=== PATIENT | male | born 1940 | race Caucasian/White ===

== ENCOUNTER → 2017-01-22 | Outpatient (CLI) | payer MEDICARE, BC ==
[~2017-01-22] MED LIST: CHOL100018 PO; METO25TA2 PO
== END | disposition home or self-care (01) ==
LOC: CFH 12:48
PROVIDERS: ATTEND Radiology Radiation Oncology
DX: C78.02 Secondary malignant neoplasm of left lung (principal); C80.1 Malignant (primary) neoplasm, unspecified; R91.8 Other nonspecific abnormal finding of lung field; M53.84 Other specified dorsopathies, thoracic region; K76.89 Other specified diseases of liver; Z90.5 Acquired absence of kidney
CPT/HCPCS: 71250; 74150

== ENCOUNTER → 2017-03-05 | Outpatient (CLI) | payer MEDICARE, BC | END | disposition home or self-care (01) | LOC: CFH 13:44 | PROVIDERS: ATTEND Internal Medicine | DX: M47.895 Other spondylosis, thoracolumbar region (principal); G89.29 Other chronic pain | CPT/HCPCS: 72072; 72100 ==

== ENCOUNTER → 2017-04-07 | Outpatient (CLI) | payer MEDICARE, BC | END | disposition home or self-care (01) | LOC: CFH 10:12 | PROVIDERS: ATTEND Radiology Radiation Oncology | DX: C78.02 Secondary malignant neoplasm of left lung (principal); I10 Essential (primary) hypertension; R91.8 Other nonspecific abnormal finding of lung field; N43.3 Hydrocele, unspecified; K76.9 Liver disease, unspecified; K57.30 Diverticulosis of large intestine without perforation or abscess without bleeding; Z90.5 Acquired absence of kidney | CPT/HCPCS: 71250; 74176 ==

== ENCOUNTER → 2017-04-09 | Outpatient (CLI) | payer MEDICARE, BC | END | disposition home or self-care (01) | LOC: ROC 11-26 09:52 | PROVIDERS: ATTEND Radiology Radiation Oncology | DX: C78.02 Secondary malignant neoplasm of left lung (principal); Z85.528 Personal history of other malignant neoplasm of kidney; Z90.5 Acquired absence of kidney | CPT/HCPCS: G0463 ==

== ENCOUNTER → 2017-07-09 | Outpatient (CLI) | payer MEDICARE, BC ==
[~2017-07-09] MED LIST changes: +CHOL100012 PO; -CHOL100018 PO
== END | disposition home or self-care (01) ==
LOC: ROC 09:00
PROVIDERS: ATTEND Radiology Radiation Oncology
DX: C64.1 Malignant neoplasm of right kidney, except renal pelvis (principal); C64.2 Malignant neoplasm of left kidney, except renal pelvis; R91.8 Other nonspecific abnormal finding of lung field
CPT/HCPCS: G0463

== ENCOUNTER → 2017-10-11 | Outpatient (CLI) | payer MEDICARE, BC | END | disposition home or self-care (01) | LOC: CFH 10:12 | PROVIDERS: ATTEND Radiology Radiation Oncology | DX: R91.8 Other nonspecific abnormal finding of lung field (principal); R59.9 Enlarged lymph nodes, unspecified; C34.90 Malignant neoplasm of unspecified part of unspecified bronchus or lung; I10 Essential (primary) hypertension | CPT/HCPCS: 71250; 74176 ==

== ENCOUNTER → 2017-10-13 | Outpatient (CLI) | payer MEDICARE, BC | LOC: ROC 09:35 | PROVIDERS: ATTEND Radiology Radiation Oncology | DX: C64.2 Malignant neoplasm of left kidney, except renal pelvis (principal); Z92.3 Personal history of irradiation; R91.8 Other nonspecific abnormal finding of lung field; Z85.528 Personal history of other malignant neoplasm of kidney; Z90.5 Acquired absence of kidney | CPT/HCPCS: G0463 ==

== ENCOUNTER → 2018-01-13 | Outpatient (CLI) | payer MEDICARE, BC | END | disposition home or self-care (01) | LOC: ROC 07:48 | PROVIDERS: ATTEND Radiology Radiation Oncology | DX: C78.02 Secondary malignant neoplasm of left lung (principal); Z85.528 Personal history of other malignant neoplasm of kidney; Z90.5 Acquired absence of kidney | CPT/HCPCS: G0463 ==

== ENCOUNTER → 2018-04-14 | Outpatient (CLI) | payer MEDICARE, BC | END | disposition home or self-care (01) | LOC: PETCFH 07:50 | PROVIDERS: ATTEND Radiology Radiation Oncology | DX: C78.02 Secondary malignant neoplasm of left lung (principal); C64.1 Malignant neoplasm of right kidney, except renal pelvis; C64.2 Malignant neoplasm of left kidney, except renal pelvis; R91.8 Other nonspecific abnormal finding of lung field; K40.90 Unilateral inguinal hernia, without obstruction or gangrene, not specified as recurrent; K57.30 Diverticulosis of large intestine without perforation or abscess without bleeding; N43.3 Hydrocele, unspecified; I25.10 Atherosclerotic heart disease of native coronary artery without angina pectoris; I10 Essential (primary) hypertension | CPT/HCPCS: 78815; A9552 ==

== ENCOUNTER → 2018-04-26 | Outpatient (CLI) | payer MEDICARE, BC ==
[~2018-04-26] VITALS: Ht 170.2 cm; Wt 65.4 kg
[~2018-04-26] MED LIST changes: +FENTANYL PF 100 MCG/2ML ONE; +FLUMAZENIL 0.1 MG/1 ML, 5ML ONE; +LIDOCAINE-MPF 2%, 2ML ONE; +MIDAZOLAM 1 MG/ML, 5ML ONE; +NALOXONE 1 MG/ML, 2ML ONE; +SODIUM CHLORIDE 0.9% 1,000 ML IV SCH
[2018-04-26 07:42] VITALS: BP 149/85
== END | disposition home or self-care (01) ==
LOC: OUT 07:09
PROVIDERS: ATTEND Radiology Radiation Oncology
DX: C64.2 Malignant neoplasm of left kidney, except renal pelvis (principal); C64.1 Malignant neoplasm of right kidney, except renal pelvis; C78.02 Secondary malignant neoplasm of left lung; I10 Essential (primary) hypertension; I25.10 Atherosclerotic heart disease of native coronary artery without angina pectoris; Z88.5 Allergy status to narcotic agent; Z98.890 Other specified postprocedural states; Z79.899 Other long term (current) drug therapy
CPT/HCPCS: 32553; 77014; 99156; 99157; J2250; J3010; J3490; J7030; J2310

== ENCOUNTER → 2018-07-21 | Outpatient (CLI) | payer MEDICARE, BC ==
[~2018-07-21] MED LIST changes: -FENTANYL PF 100 MCG/2ML ONE; -FLUMAZENIL 0.1 MG/1 ML, 5ML ONE; -LIDOCAINE-MPF 2%, 2ML ONE; -MIDAZOLAM 1 MG/ML, 5ML ONE; -NALOXONE 1 MG/ML, 2ML ONE; -SODIUM CHLORIDE 0.9% 1,000 ML IV SCH
== END | disposition home or self-care (01) ==
LOC: CFH 10:19
PROVIDERS: ATTEND Radiology Radiation Oncology
DX: C78.02 Secondary malignant neoplasm of left lung (principal); R91.1 Solitary pulmonary nodule; R59.9 Enlarged lymph nodes, unspecified; Z85.528 Personal history of other malignant neoplasm of kidney
CPT/HCPCS: 71250; 74176; 82565

== ENCOUNTER → 2018-07-27 | Outpatient (CLI) | payer MEDICARE, BC | END | disposition home or self-care (01) | LOC: ROC 07:44 | PROVIDERS: ATTEND Radiology Radiation Oncology | DX: Z02.9 Encounter for administrative examinations, unspecified (principal) ==

== ENCOUNTER → 2018-11-08 | Outpatient (CLI) | payer MEDICARE, BC | END | disposition home or self-care (01) | LOC: CFH 12:11 | PROVIDERS: ATTEND Radiology Radiation Oncology | DX: C64.1 Malignant neoplasm of right kidney, except renal pelvis (principal); C78.02 Secondary malignant neoplasm of left lung; N43.3 Hydrocele, unspecified; K40.90 Unilateral inguinal hernia, without obstruction or gangrene, not specified as recurrent; Z90.5 Acquired absence of kidney | CPT/HCPCS: 71250; 74176 ==

== ENCOUNTER → 2019-02-07 | Outpatient (CLI) | payer MEDICARE, BC | END | disposition home or self-care (01) | LOC: CFH 12:10 | PROVIDERS: ATTEND Radiology Radiation Oncology | DX: C78.02 Secondary malignant neoplasm of left lung (principal); N43.3 Hydrocele, unspecified | CPT/HCPCS: 71250; 74176 ==

== ENCOUNTER → 2019-02-09 | Outpatient (CLI) | payer MEDICARE, BC | END | disposition home or self-care (01) | LOC: EDSTATUS 11-10 14:01 → ROC 07:57 | PROVIDERS: ATTEND Radiology Radiation Oncology | DX: Z08 Encounter for follow-up examination after completed treatment for malignant neoplasm (principal); Z85.528 Personal history of other malignant neoplasm of kidney; Z88.8 Allergy status to other drugs, medicaments and biological substances; Z90.5 Acquired absence of kidney | CPT/HCPCS: G0463 ==

== ENCOUNTER 2019-05-09 12:14 | Outpatient (CLI) | payer MEDICARE, BC | END 2019-05-09 23:59 | disposition home or self-care (01) | LOC: CFH 12:14 | PROVIDERS: ATTEND Radiology Radiation Oncology | DX: C78.02 Secondary malignant neoplasm of left lung (principal) | CPT/HCPCS: 71250; 74176 ==

== ENCOUNTER → 2019-08-14 | Outpatient (CLI) | payer MEDICARE, BC | END | disposition home or self-care (01) | LOC: CFH 10:40 | PROVIDERS: ATTEND Internal Medicine Hematology & Oncology | DX: C64.2 Malignant neoplasm of left kidney, except renal pelvis (principal); C78.02 Secondary malignant neoplasm of left lung; K76.89 Other specified diseases of liver; K40.90 Unilateral inguinal hernia, without obstruction or gangrene, not specified as recurrent; N43.3 Hydrocele, unspecified; N40.0 Benign prostatic hyperplasia without lower urinary tract symptoms; I10 Essential (primary) hypertension | CPT/HCPCS: 71250; 74176 ==

== ENCOUNTER → 2019-11-14 | Outpatient (CLI) | payer MEDICARE, BC ==
[~2019-11-14] MED LIST changes: +LEVO25TA2 PO; +POLY17PO5 PO
== END | disposition home or self-care (01) ==
LOC: CFH 15:02
PROVIDERS: ATTEND Internal Medicine Hematology & Oncology
DX: J92.9 Pleural plaque without asbestos (principal); R22.2 Localized swelling, mass and lump, trunk; R91.8 Other nonspecific abnormal finding of lung field; N32.89 Other specified disorders of bladder
CPT/HCPCS: 71250; 74176

== ENCOUNTER → 2020-04-04 | Outpatient (CLI) | payer MEDICARE, BC ==
[~2020-04-04] MED LIST changes: +OMNIPAQUE 350 MG/ML, 100ML BOTTLE ONE
== END | disposition home or self-care (01) ==
LOC: CFH 12:17
PROVIDERS: ATTEND Internal Medicine Hematology & Oncology
DX: C64.2 Malignant neoplasm of left kidney, except renal pelvis (principal); J98.19 Other pulmonary collapse; R91.8 Other nonspecific abnormal finding of lung field
CPT/HCPCS: 71275; Q9967

== ENCOUNTER → 2020-04-05 | Outpatient (CLI) | payer MEDICARE, BC ==
[~2020-04-05] MED LIST changes: +LIDOCAINE 1%, 10ML ONE; -OMNIPAQUE 350 MG/ML, 100ML BOTTLE ONE
== END | disposition home or self-care (01) ==
LOC: RAD 11:38
PROVIDERS: ATTEND Internal Medicine Hematology & Oncology
DX: J90 Pleural effusion, not elsewhere classified (principal); R91.8 Other nonspecific abnormal finding of lung field; C64.2 Malignant neoplasm of left kidney, except renal pelvis; Z88.5 Allergy status to narcotic agent; Z79.899 Other long term (current) drug therapy
CPT/HCPCS: 32555; 82150; 82945; 83615; 83986; 84157; 87015; 87070; 87075; 87102; 87116; 87205; 87206; 88112; 88305; 89051

== ENCOUNTER → 2020-05-03 | Outpatient (CLI) | payer MEDICARE, BC | END | disposition home or self-care (01) | LOC: RAD 13:31 | PROVIDERS: ATTEND Internal Medicine Hematology & Oncology | DX: J90 Pleural effusion, not elsewhere classified (principal); Z85.528 Personal history of other malignant neoplasm of kidney; Z88.5 Allergy status to narcotic agent; Z79.899 Other long term (current) drug therapy | CPT/HCPCS: 32555 ==

== ENCOUNTER → 2020-06-10 | Outpatient (CLI) | payer MEDICARE, BC ==
[~2020-06-10] MED LIST changes: -LIDOCAINE 1%, 10ML ONE
== END | disposition home or self-care (01) ==
LOC: CFH 12:39
PROVIDERS: ATTEND Internal Medicine Hematology & Oncology
DX: C78.02 Secondary malignant neoplasm of left lung (principal); C78.01 Secondary malignant neoplasm of right lung; C64.2 Malignant neoplasm of left kidney, except renal pelvis; R91.8 Other nonspecific abnormal finding of lung field; J90 Pleural effusion, not elsewhere classified; J92.9 Pleural plaque without asbestos
CPT/HCPCS: 71250

== ENCOUNTER → 2020-06-21 | Outpatient (CLI) | payer MEDICARE, BC | END | disposition home or self-care (01) | LOC: WOUND 08:59 | PROVIDERS: ATTEND Family Medicine | DX: S09.12XA Laceration of muscle and tendon of head, initial encounter (principal); S01.80XA Unspecified open wound of other part of head, initial encounter; C7A.093 Malignant carcinoid tumor of the kidney; I10 Essential (primary) hypertension; E03.9 Hypothyroidism, unspecified; Z85.118 Personal history of other malignant neoplasm of bronchus and lung; Z88.5 Allergy status to narcotic agent; Z79.899 Other long term (current) drug therapy; W19.XXXA Unspecified fall, initial encounter; Y92.89 Other specified places as the place of occurrence of the external cause; Y99.8 Other external cause status; Y93.89 Activity, other specified | CPT/HCPCS: 97597; G0463 ==

== ENCOUNTER → 2020-06-28 | Outpatient (CLI) | payer MEDICARE, BC | END | disposition home or self-care (01) | LOC: WOUND 09:56 | PROVIDERS: ATTEND Family Medicine | DX: S09.1 Injury of muscle and tendon of head (principal); S01.80XD Unspecified open wound of other part of head, subsequent encounter; C7A.093 Malignant carcinoid tumor of the kidney; I10 Essential (primary) hypertension; E03.9 Hypothyroidism, unspecified; Z85.118 Personal history of other malignant neoplasm of bronchus and lung; Z88.5 Allergy status to narcotic agent; Z79.899 Other long term (current) drug therapy; W19.XXXD Unspecified fall, subsequent encounter | CPT/HCPCS: 97597 ==

== ENCOUNTER → 2020-07-05 | Outpatient (CLI) | payer MEDICARE, BC | END | disposition home or self-care (01) | LOC: WOUND 08:50 | PROVIDERS: ATTEND Family Medicine | DX: S09.1 Injury of muscle and tendon of head (principal); S01.80XD Unspecified open wound of other part of head, subsequent encounter; C7A.093 Malignant carcinoid tumor of the kidney; I10 Essential (primary) hypertension; E03.9 Hypothyroidism, unspecified; Z85.118 Personal history of other malignant neoplasm of bronchus and lung; Z88.5 Allergy status to narcotic agent; Z79.899 Other long term (current) drug therapy; W19.XXXD Unspecified fall, subsequent encounter | CPT/HCPCS: G0463 ==

== ENCOUNTER → 2020-07-12 | Outpatient (CLI) | payer MEDICARE, BC | END | disposition home or self-care (01) | LOC: WOUND 08:57 | PROVIDERS: ATTEND Family Medicine | DX: S09.1 Injury of muscle and tendon of head (principal); C7A.093 Malignant carcinoid tumor of the kidney; I10 Essential (primary) hypertension; E03.9 Hypothyroidism, unspecified; Z85.118 Personal history of other malignant neoplasm of bronchus and lung; C78.01 Secondary malignant neoplasm of right lung; C78.02 Secondary malignant neoplasm of left lung; W19.XXXD Unspecified fall, subsequent encounter | CPT/HCPCS: 99213; G0463 ==

== ENCOUNTER → 2020-07-19 | Outpatient (CLI) | payer MEDICARE, BC | END | disposition home or self-care (01) | LOC: WOUND 08:56 | PROVIDERS: ATTEND Family Medicine | DX: S09.1 Injury of muscle and tendon of head (principal); C7A.093 Malignant carcinoid tumor of the kidney; I10 Essential (primary) hypertension; E03.9 Hypothyroidism, unspecified; C78.01 Secondary malignant neoplasm of right lung; C78.02 Secondary malignant neoplasm of left lung; Z90.5 Acquired absence of kidney; W19.XXXD Unspecified fall, subsequent encounter | CPT/HCPCS: G0463 ==

== ENCOUNTER → 2020-08-09 | Outpatient (CLI) | payer MEDICARE, BC | END | disposition home or self-care (01) | LOC: WOUND 09:01 | PROVIDERS: ATTEND Internal Medicine | DX: S01.80XD Unspecified open wound of other part of head, subsequent encounter (principal); S09.1 Injury of muscle and tendon of head; C7A.093 Malignant carcinoid tumor of the kidney; I10 Essential (primary) hypertension; E03.9 Hypothyroidism, unspecified; C78.01 Secondary malignant neoplasm of right lung; C78.02 Secondary malignant neoplasm of left lung; Z90.5 Acquired absence of kidney; W19.XXXD Unspecified fall, subsequent encounter | CPT/HCPCS: 97597 ==

== ENCOUNTER → 2020-08-23 | Outpatient (CLI) | payer MEDICARE, BC | END | disposition home or self-care (01) | LOC: WOUND 08:55 | PROVIDERS: ATTEND Internal Medicine | DX: S01.81XD Laceration without foreign body of other part of head, subsequent encounter (principal); S09.1 Injury of muscle and tendon of head; C7A.093 Malignant carcinoid tumor of the kidney; I10 Essential (primary) hypertension; E03.9 Hypothyroidism, unspecified; C78.01 Secondary malignant neoplasm of right lung; C78.02 Secondary malignant neoplasm of left lung; Z90.5 Acquired absence of kidney; Z88.5 Allergy status to narcotic agent; Z79.899 Other long term (current) drug therapy; W19.XXXD Unspecified fall, subsequent encounter | CPT/HCPCS: 97597 ==

== ENCOUNTER → 2020-08-30 | Outpatient (CLI) | payer MEDICARE, BC | END | disposition home or self-care (01) | LOC: WOUND 09:07 | PROVIDERS: ATTEND Internal Medicine | DX: S01.81XD Laceration without foreign body of other part of head, subsequent encounter (principal); S09.1 Injury of muscle and tendon of head; C7A.093 Malignant carcinoid tumor of the kidney; I10 Essential (primary) hypertension; E03.9 Hypothyroidism, unspecified; C78.01 Secondary malignant neoplasm of right lung; C78.02 Secondary malignant neoplasm of left lung; Z90.5 Acquired absence of kidney; Z88.5 Allergy status to narcotic agent; Z79.899 Other long term (current) drug therapy; W19.XXXD Unspecified fall, subsequent encounter | CPT/HCPCS: G0463 ==

== ENCOUNTER → 2020-09-09 | Outpatient (CLI) | payer MEDICARE, BC | END | disposition home or self-care (01) | LOC: WOUND 09:01 | PROVIDERS: ATTEND Internal Medicine Cardiovascular Disease | DX: S01.81XD Laceration without foreign body of other part of head, subsequent encounter (principal); S09.1 Injury of muscle and tendon of head; C7A.093 Malignant carcinoid tumor of the kidney; I10 Essential (primary) hypertension; E03.9 Hypothyroidism, unspecified; C78.01 Secondary malignant neoplasm of right lung; C78.02 Secondary malignant neoplasm of left lung; Z90.5 Acquired absence of kidney; Z88.5 Allergy status to narcotic agent; Z79.899 Other long term (current) drug therapy; W19.XXXD Unspecified fall, subsequent encounter | CPT/HCPCS: G0463 ==

== ENCOUNTER → 2020-09-16 | Outpatient (CLI) | payer MEDICARE, BC | END | disposition home or self-care (01) | LOC: WOUND 12:43 | PROVIDERS: ATTEND Internal Medicine | DX: S01.81XD Laceration without foreign body of other part of head, subsequent encounter (principal); S09.1 Injury of muscle and tendon of head; C7A.093 Malignant carcinoid tumor of the kidney; I10 Essential (primary) hypertension; E03.9 Hypothyroidism, unspecified; C78.01 Secondary malignant neoplasm of right lung; C78.02 Secondary malignant neoplasm of left lung; Z90.5 Acquired absence of kidney; Z88.5 Allergy status to narcotic agent; Z79.899 Other long term (current) drug therapy; W19.XXXD Unspecified fall, subsequent encounter | CPT/HCPCS: 97597 ==

== ENCOUNTER 2020-09-30 09:55 | Outpatient (CLI) | payer MEDICARE, BC | END 2020-09-30 23:59 | disposition home or self-care (01) | LOC: WOUND 09:55 | PROVIDERS: ATTEND Internal Medicine | DX: S01.81XD Laceration without foreign body of other part of head, subsequent encounter (principal); S09.1 Injury of muscle and tendon of head; C7A.093 Malignant carcinoid tumor of the kidney; I10 Essential (primary) hypertension; E03.9 Hypothyroidism, unspecified; C78.01 Secondary malignant neoplasm of right lung; C78.02 Secondary malignant neoplasm of left lung; Z90.5 Acquired absence of kidney; Z88.5 Allergy status to narcotic agent; Z79.899 Other long term (current) drug therapy; W19.XXXD Unspecified fall, subsequent encounter | CPT/HCPCS: 17250; C5275; Q4166 ==

== ENCOUNTER → 2020-10-07 | Outpatient (CLI) | payer MEDICARE, BC | END | disposition home or self-care (01) | LOC: WOUND 10:34 | PROVIDERS: ATTEND Internal Medicine | DX: S01.81XD Laceration without foreign body of other part of head, subsequent encounter (principal); S09.1 Injury of muscle and tendon of head; C7A.093 Malignant carcinoid tumor of the kidney; I10 Essential (primary) hypertension; E03.9 Hypothyroidism, unspecified; C78.01 Secondary malignant neoplasm of right lung; C78.02 Secondary malignant neoplasm of left lung; Z90.5 Acquired absence of kidney; Z88.5 Allergy status to narcotic agent; Z79.899 Other long term (current) drug therapy; W19.XXXD Unspecified fall, subsequent encounter | CPT/HCPCS: 15275; Q4196 ==

== ENCOUNTER 2020-10-14 11:02 | Outpatient (CLI) | payer MEDICARE, BC | END 2020-10-14 23:59 | disposition home or self-care (01) | LOC: WOUND 11:02 | PROVIDERS: ATTEND Internal Medicine | DX: S01.81XD Laceration without foreign body of other part of head, subsequent encounter (principal); S09.1 Injury of muscle and tendon of head; C7A.093 Malignant carcinoid tumor of the kidney; I10 Essential (primary) hypertension; E03.9 Hypothyroidism, unspecified; C78.01 Secondary malignant neoplasm of right lung; C78.02 Secondary malignant neoplasm of left lung; Z90.5 Acquired absence of kidney; Z88.5 Allergy status to narcotic agent; Z79.899 Other long term (current) drug therapy; W19.XXXD Unspecified fall, subsequent encounter | CPT/HCPCS: 97597 ==

== ENCOUNTER 2020-10-23 10:30 | Outpatient (CLI) | payer MEDICARE, BC | END 2020-10-23 23:59 | disposition home or self-care (01) | LOC: WOUND 10:30 | PROVIDERS: ATTEND Internal Medicine | DX: S01.81XD Laceration without foreign body of other part of head, subsequent encounter (principal); S09.1 Injury of muscle and tendon of head; C7A.093 Malignant carcinoid tumor of the kidney; I10 Essential (primary) hypertension; E03.9 Hypothyroidism, unspecified; C78.01 Secondary malignant neoplasm of right lung; C78.02 Secondary malignant neoplasm of left lung; Z90.5 Acquired absence of kidney; Z88.5 Allergy status to narcotic agent; Z79.899 Other long term (current) drug therapy; W19.XXXD Unspecified fall, subsequent encounter | CPT/HCPCS: 97597 ==

== ENCOUNTER → 2020-11-06 | Outpatient (CLI) | payer MEDICARE, BC | END | disposition home or self-care (01) | LOC: WOUND 08:00 | PROVIDERS: ATTEND Internal Medicine | DX: S09.1 Injury of muscle and tendon of head (principal); S01.81XD Laceration without foreign body of other part of head, subsequent encounter; C7A.093 Malignant carcinoid tumor of the kidney; I10 Essential (primary) hypertension; E03.9 Hypothyroidism, unspecified; C78.01 Secondary malignant neoplasm of right lung; C78.02 Secondary malignant neoplasm of left lung; Z90.5 Acquired absence of kidney; Z88.5 Allergy status to narcotic agent; Z79.899 Other long term (current) drug therapy; W19.XXXD Unspecified fall, subsequent encounter | CPT/HCPCS: G0463 ==

== ENCOUNTER → 2020-11-22 | Outpatient (CLI) | payer MEDICARE, BC | END | disposition home or self-care (01) | LOC: WOUND 09:03 | PROVIDERS: ATTEND Internal Medicine | DX: S09.1 Injury of muscle and tendon of head (principal); S01.80XD Unspecified open wound of other part of head, subsequent encounter; I10 Essential (primary) hypertension; E03.9 Hypothyroidism, unspecified; C7A.093 Malignant carcinoid tumor of the kidney; C78.01 Secondary malignant neoplasm of right lung; C78.02 Secondary malignant neoplasm of left lung; Z90.5 Acquired absence of kidney; W19.XXXD Unspecified fall, subsequent encounter | CPT/HCPCS: 97597 ==

== ENCOUNTER → 2020-12-09 | Outpatient (CLI) | payer MEDICARE, BC | END | disposition home or self-care (01) | LOC: WOUND 09:42 | PROVIDERS: ATTEND Internal Medicine | DX: S09.1 Injury of muscle and tendon of head (principal); S01.80XD Unspecified open wound of other part of head, subsequent encounter; I10 Essential (primary) hypertension; E03.9 Hypothyroidism, unspecified; C7A.093 Malignant carcinoid tumor of the kidney; C78.01 Secondary malignant neoplasm of right lung; C78.02 Secondary malignant neoplasm of left lung; Z79.899 Other long term (current) drug therapy; Z88.5 Allergy status to narcotic agent; Z90.5 Acquired absence of kidney; W19.XXXD Unspecified fall, subsequent encounter | CPT/HCPCS: 97597 ==

== ENCOUNTER → 2020-12-18 | Outpatient (CLI) | payer MEDICARE, BC | END | disposition home or self-care (01) | LOC: CFH 08:56 | PROVIDERS: ATTEND Internal Medicine Hematology & Oncology | DX: C64.2 Malignant neoplasm of left kidney, except renal pelvis (principal); J90 Pleural effusion, not elsewhere classified; J92.9 Pleural plaque without asbestos | CPT/HCPCS: 71046 ==

== ENCOUNTER → 2020-12-23 | Outpatient (CLI) | payer MEDICARE, BC | END | disposition home or self-care (01) | LOC: WOUND 08:34 | PROVIDERS: ATTEND Internal Medicine | DX: S09.1 Injury of muscle and tendon of head (principal); S01.80XD Unspecified open wound of other part of head, subsequent encounter; I10 Essential (primary) hypertension; E03.9 Hypothyroidism, unspecified; C7A.093 Malignant carcinoid tumor of the kidney; C78.01 Secondary malignant neoplasm of right lung; C78.02 Secondary malignant neoplasm of left lung; Z79.899 Other long term (current) drug therapy; Z88.5 Allergy status to narcotic agent; Z90.5 Acquired absence of kidney; W19.XXXD Unspecified fall, subsequent encounter | CPT/HCPCS: G0463 ==

== ENCOUNTER 2021-01-05 12:16 | Emergency (ER) | payer MEDICARE, BC ==
[~2021-01-05] VITALS: Ht 170.2 cm; Wt 48.8 kg
--- NOTE | 2021-01-05 12:54 | NUR ---
80 yo m bib ems from home with c/o weakness x 1 week. per ems pt had glf today witnessed by spouse with no significant injuries. ems reports patient a&o x 4 independent at baseline. pt presents a&o x1, poor historian, only verified hx is cancer. severely weak, unable to turn self in bed. covered in dark appreaing stool, negative bedside occult stool per olu smith. pt tachycardic, tachypnic, other vs wdl. 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 pt resting on gurney, call light in reach, side rails up x 2, nadn.
--- NOTE | 2021-01-05 13:11 | NUR ---
EDT AT BEDSIDE FOR C-COLLAR
--- NOTE | 2021-01-05 13:20 | NUR ---
PER FLORINA (SPOUSE [phone]) PT EXPERIENCES INTERMITTENT CONFUSION BUT NORMALLY ORIENTED TO SELF. PT INTERMITTENTLY INCONTINENT. PT NORMALLY ABLE TO AMBULATE INDEPENDENTLY.
--- NOTE | 2021-01-05 13:34 | NUR ---
PT TAKEN TO CT
[2021-01-05 13:47] LABS: BASOPHILS % (AUTO) 1 % (0-1); EOSINOPHILS % (AUTO) 0 % (1-7); LYMPHOCYTES % (AUTO) 3 % (22-44); MEAN CORPUSCULAR HEMOGLOBIN 21.4 pg (27.5-34.5); MEAN PLATELET VOLUME 6.3 fL (7.4-10.4); MONOCYTES % (AUTO) 5 % (2-9); NEUTROPHILS % (AUTO) 91 % (42-75); PLATELET COUNT 323 x10^3/uL (130-400); RED BLOOD COUNT 5.72 x10^6/uL (4.38-5.82); RED CELL DISTRIBUTION WIDTH 21.1 % (9.4-14.8)
[2021-01-05 13:50] LABS: ALANINE AMINOTRANSFERASE 27 U/L (12-78); ALBUMIN 2.7 g/dL (3.4-5.0); ANION GAP 7 mmol/L (5-15); CHLORIDE 107 mmol/L (98-107); CREATININE 1.04 mg/dL (0.7-1.3)
[2021-01-05 13:54] LABS: ALKALINE PHOSPHATASE 91 U/L (45-117); BILIRUBIN,TOTAL 0.5 mg/dL (0.2-1.0); TOTAL PROTEIN 6.7 g/dL (6.4-8.2); TROPONIN I < 0.015 ng/mL (0.000-0.045)
--- NOTE | 2021-01-05 13:59 | NUR ---
pt back from ct. cath for urine specimen per erp order. specimen walked to lab.
[2021-01-05 14:00] LABS: MD MORPH REVIEW ONLY
[2021-01-05 14:01] LABS: ANISOCYTOSIS 1+; OVALOCYTES 1+
[2021-01-05 14:02] LABS: MICROCYTOSIS 2+; POLYCHROMASIA 1+
[2021-01-05 14:03] LABS: <PLATELET ESTIMATE> ADEQUATE; <PLT MORPHOLOGY> NORMAL PLT MORPH; HYPOCHROMIA 1+
[2021-01-05 14:04] LABS: TOXIC GRAN 1+
--- NOTE | 2021-01-05 14:15 | NUR ---
CT HEAD RESULTS REPORTED TO ERP. BONE GRINDER INFORMED, PT MOVED TO TR 4.
[2021-01-05 14:16] LABS: MICROSCOPIC INDICATED
--- NOTE | 2021-01-05 14:25 | NUR ---
REPORT RECEIVED FROM TONEY HERRMANN. PT TRANSPORTED TO TRAUMA4 AT THIS TIME. ASSUMING CARE OF PT.
--- NOTE | 2021-01-05 14:34 | NUR ---
2ND PIV STARTED. PT RESTING ON GURNEY W/ CALL LIGHT IN REACH AND SIDE RAILS UPX2. RESP EVEN AND UNLABORED, GERMAINE.
--- NOTE | 2021-01-05 14:43 | NUR ---
PTS SPOUSE UPDATED ON PTS POC. WILL COME IN TO SEE PT.
[2021-01-05] MEDS ORDERED: NEOSPORIN OINT. PKT 1 PACKET ONE (15:00)
--- NOTE | 2021-01-05 15:08 | NUR ---
PT GIVES VERBAL CONSET TO TRANFER TO [facility]. SPOUSE UPDATED.
[2021-01-05 15:11] LABS: INTERNATIONAL NORMALIZED RATIO 1.14 (0.93-1.1); PROTHROMBIN TIME 12.2 Seconds (9.6-11.5)
--- NOTE | 2021-01-05 15:12 | NUR ---
REPORT CALLED TO [facility] MANAGER CARDIOLOGY LAURA.
--- NOTE | 2021-01-05 15:17 | NUR ---
SPOKE WITH PIPO AT [facility]. TRANSPORT AT 1600
[2021-01-05 16:02] VITALS: BP 137/64
--- NOTE | 2021-01-05 16:03 | NUR ---
PT RESTING ON GURNEY W/ CALL LIGHT IN REACH AND SIDE RAILS UPX2. VSS, NADN. AWAITING TRANSPORT.
--- NOTE | 2021-01-05 16:46 | NUR ---
REPORT GIVEN TO [facility] ÓSCAR Ni RN. PT AWAKE AND ALERT, RESP EVEN AND UNLABORED, NADN. TRANSPORTED TO [facility].
== END 2021-01-05 23:14 | disposition short-term general hospital (02) ==
LOC: ED 15:02
DX: S06.360A Traumatic hemorrhage of cerebrum, unspecified, without loss of consciousness, initial encounter (principal); G93.40 Encephalopathy, unspecified; G93.89 Other specified disorders of brain; C79.00 Secondary malignant neoplasm of unspecified kidney and renal pelvis; M54.2 Cervicalgia; R41.82 Altered mental status, unspecified; R53.1 Weakness; R00.0 Tachycardia, unspecified; W18.30XA Fall on same level, unspecified, initial encounter; Y93.89 Activity, other specified; Y92.89 Other specified places as the place of occurrence of the external cause; Y99.8 Other external cause status
CPT/HCPCS: 36415; 70450; 71045; 72125; 80053; 81001; 83605; 84484; 85025; 85610; 87040; 93005; 99285